=== PATIENT | female | born 1950 | race Caucasian/White ===

== ENCOUNTER 2017-12-24 11:28 | Outpatient (CLI) | payer OTHER ==
[2017-12-30] MEDS ORDERED: SIMVASTATIN20 MG PO (11:19)
[2017-12-30] MEDS ORDERED: NIFEDIPINE ER60 M1 PO (11:20)
[2017-12-30] MEDS ORDERED: VIT C-ROSE HIP500 MG PO (11:21)
[2017-12-30] MEDS ORDERED: CENTRUM SILVER1 EAC2 PO (11:21)
[2017-12-30] MEDS ORDERED: VITAMIN D10000 UNIT PO (11:22)
== END 2017-12-24 11:36 | disposition home or self-care (01) ==
LOC: RAD 11:28 → LAB 11:28
DX: C18.2 Malignant neoplasm of ascending colon (principal); K92.1 Melena; Z85.038 Personal history of other malignant neoplasm of large intestine

== ENCOUNTER 2018-01-01 05:09 | Day surgery (SDC) | payer OTHER ==
[~2018-01-01 05:09] MED LIST: CENTRUM SILVER1 EAC2 PO; NIFEDIPINE ER60 M1 PO; SIMVASTATIN20 MG PO; VIT C-ROSE HIP500 MG PO; VITAMIN D10000 UNIT PO
== END 2018-01-01 13:05 | disposition home or self-care (01) ==
LOC: CIR.AMB 05:09
DX: C18.2 Malignant neoplasm of ascending colon (principal)
CPT/HCPCS: 36561; 36590; C1751